=== PATIENT | female | born 1990 | race Caucasian/White ===

== ENCOUNTER 2023-12-30 15:31 | Emergency (ER) | payer OTHER ==
[2023-12-30 15:41] VITALS: BP 111/62; PULSE 77; RESP 18; TEMP 97.9; BMI 31.4
[2023-12-30] MEDS ORDERED: MECLIZINE HCL 25 MG TABLET (FP) ONE (17:12)
[2023-12-30] MEDS: MECLIZINE HCL 25 MG TABLET (FP) PO ONE (17:20)
[2023-12-30 17:32] LABS: BASO % 0.6 % (0-2.0); EOS % 4.3 % (0-4.5); HEMATOCRIT 41.4 % (32.4-45.2); HEMOGLOBIN 13.6 GM/dL (10.7-15.3); LYMPH % 31.8 % (8-40); MCH 27.3 pg (25.7-33.7); MCHC 32.9 g/dl (32.0-36.0); MEAN CELL VOLUME 82.9 fl (80-96); MEAN PLT VOLUME 10.6 fl (7.5-11.1); MONO % 8.8 % (3.8-10.2); NEUT % 54.5 % (42.8-82.8); PLATELET COUNT 227 10^3/uL (134-434); RDW 14.4 % (11.6-15.6); WHITE BLOOD COUNT 6.4 K/mm3 (4.0-10.0)
[2023-12-30 17:54] LABS: POTASSIUM 3.8 mmol/L (3.5-5.1)
[2023-12-30 17:56] LABS: CALCIUM 9.2 mg/dL (8.5-10.1)
[2023-12-30 17:57] LABS: ALBUMIN 3.9 g/dl (3.4-5.0); BLOOD UREA NITROGEN 8.5 mg/dL (7-18)
[2023-12-30 18:00] LABS: CREATININE 0.8 mg/dL (0.55-1.3)
[2023-12-30 18:02] LABS: BILIRUBIN,TOTAL 0.6 mg/dL (0.2-1); TOT PROT 7.6 g/dl (6.4-8.2)
== END 2023-12-30 18:34 | disposition home or self-care (01) ==
LOC: JER 15:31
DX: R42 Dizziness and giddiness (principal); K64.9 Unspecified hemorrhoids
CPT/HCPCS: 36415; 80053; 85025; 93005; 93010; 99284-25